=== PATIENT | male | born 1970 | race Caucasian/White ===

== ENCOUNTER 2020-07-22 21:47 | Emergency (ER) | payer OTHER ==
[~2020-07-22] VITALS: Ht 177.8 cm; Wt 91.0 kg
[2020-07-22 21:48] VITALS: BP 127/81
[2020-07-23] MEDS ORDERED: cefTRIAXone SOD 1,000 MG VL IM ONE (02:45)
[2020-07-23] MEDS ORDERED: ACETAMINOPHEN 325 MG TAB PO ONE (02:45)
[2020-07-23] MEDS ORDERED: AZITHROMYCIN 250 MG TAB PO ONE (02:45)
== END 2020-07-23 03:28 | disposition home or self-care (01) ==
LOC: ER 21:50
DX: N39.0 Urinary tract infection, site not specified (principal); F12.10 Cannabis abuse, uncomplicated; F17.210 Nicotine dependence, cigarettes, uncomplicated; Z20.2 Contact with and (suspected) exposure to infections with a predominantly sexual mode of transmission
CPT/HCPCS: 81002; J0696